=== PATIENT | female | born 1980 | race Caucasian/White ===

== ENCOUNTER → 2017-09-12 15:51 | Outpatient (CLI) | payer MEDICAID, SELFPAY ==
[2017-09-12 16:15] LABS: Mean Corp Hgb Conc 34.2 g/gl (32-36); Mean Corpuscular Volume 93.6 fL (81-99); Mean Platelet Vol. 10.7 fl (6.2-12.0); Platelet Count 263 K/mm3 (150-450); RBC Distribution Width SD 40.8 fl (35.1-43.9); Red Blood Count 4.06 M/mm3 (4.2-5.4); White Blood Count 10.3 K/mm3 (4.4-11.0)
[2017-09-12 16:18] LABS: Scan Indicated on CBC? Y/N NO
[2017-09-12 16:50] LABS: hCG Titer Quant., Serum 12589 mIU/mL (<9 non-preg)
== END ==
PROVIDERS: Visit Provider Obstetrics & Gynecology
DX: O20.0 Threatened abortion (principal)
CPT/HCPCS: 36415; 84702; 85027